=== PATIENT | male | born 1940 | race Two or more races ===

== ENCOUNTER 2024-06-04 05:21 | Day surgery (SDC) | payer OTHER ==
[2024-05-28 14:07] VITALS: BP 165/70
[~2024-06-04] VITALS: Ht 170.2 cm; Wt 62.6 kg
[~2024-06-04 05:21] MED LIST: COZAAR50 MG PO; ELIQUIS2.5 MG PO; ROSUVASTATIN CA20 MG PO; SYNTHROID100 MCG PO; TAMS0.4C PO
[2024-06-04] MEDS ORDERED: EPINEPHRINE HCL/PF 1 MG/ML AMPUL ONE (07:50)
[2024-06-04] MEDS ORDERED: POVIDONE-IODINE 118 ML BOTT TOP ONE (07:50)
[2024-06-04] MEDS ORDERED: LIDOCAINE HCL 1%/EPINEPHRINE 20ML VIAL IJ ONE (07:50)
[2024-06-04] MEDS ORDERED: CEFAZOLIN SODIUM 1,000 MG VIAL ONE (07:51)
[2024-06-04] MEDS ORDERED: POVIDONE-IODINE SCRUB 118 ML BOTT TOP ONE (08:06)
[2024-06-04] MEDS ORDERED: CIPROFLOXACIN HCL 0.175 MG/DR DROPS OTIC ONE (09:15)
[2024-06-04] MEDS ORDERED: BACITRACIN ZINC 0.9 GM OINT.PACKET TOP ONE (09:15)
[2024-06-04] MEDS ORDERED: PROMETHAZINE HCL 25 MG/ML AMPUL IM PRN (10:00)
[2024-06-04] MEDS ORDERED: MEPERIDINE HCL/PF 25 MG/ML VIAL IM PRN (10:00)
[2024-06-04] MEDS ORDERED: PROMETHAZINE HCL 25 MG/ML AMPUL IM ONE (10:05)
[2024-06-04] MEDS ORDERED: PROMETHAZINE HCL 25 MG/ML AMPUL ONE (10:05)
[2024-06-04] MEDS ORDERED: MEPERIDINE HCL 25 MG/ML AMPUL IM ONE (10:05)
== END 2024-06-04 11:15 | disposition home or self-care (01) ==
LOC: CIR.AMB 05:21
PROVIDERS: ATTEND Otolaryngology Otology & Neurotology
DX: H90.11 Conductive hearing loss, unilateral, right ear, with unrestricted hearing on the contralateral side (principal); H80.81 Other otosclerosis, right ear; I10 Essential (primary) hypertension; E03.8 Other specified hypothyroidism; M19.90 Unspecified osteoarthritis, unspecified site; Z88.6 Allergy status to analgesic agent